=== PATIENT | male | born 1970 | race Caucasian/White ===

== ENCOUNTER 2016-10-07 21:17 | Emergency (ER) | payer OTHER ==
[~2016-10-07] VITALS: Ht 165.1 cm; Wt 100.0 kg
[2016-10-07] MEDS: LIDOCAINE HCL 1%/EPI 1:200,000 30 ML VIAL MC ONE (22:47)
[2016-10-07 23:51] VITALS: BP 145/100
[2016-10-07] MEDS: BACITRACIN ZINC OINT UDPKT TOP ONE (23:51)
== END 2016-10-07 23:53 | disposition home or self-care (01) ==
LOC: ER 21:18
DX: S01.91XA Laceration without foreign body of unspecified part of head, initial encounter (principal); S09.8XXA Other specified injuries of head, initial encounter; F41.9 Anxiety disorder, unspecified; E78.00 Pure hypercholesterolemia, unspecified; Z98.890 Other specified postprocedural states; W22.8XXA Striking against or struck by other objects, initial encounter; Y93.89 Activity, other specified; Y92.89 Other specified places as the place of occurrence of the external cause; Y99.8 Other external cause status
CPT/HCPCS: 70450; 99284